=== PATIENT | female | born 1950 | race Caucasian/White ===

== ENCOUNTER 2022-05-15 10:52 | Outpatient (CLI) | payer MEDICARE | END 2022-05-15 10:53 | disposition home or self-care (01) | LOC: BICRAD 10:52 | PROVIDERS: ATTEND Podiatrist | DX: R60.0 Localized edema (principal); M79.672 Pain in left foot; E11.9 Type 2 diabetes mellitus without complications ==

== ENCOUNTER 2022-11-27 14:07 | Outpatient (CLI) | payer MEDICARE | END 2022-11-27 14:08 | disposition home or self-care (01) | LOC: RAD 14:07 | PROVIDERS: ATTEND Internal Medicine Critical Care Medicine | DX: R06.00 Dyspnea, unspecified (principal); J98.4 Other disorders of lung | CPT/HCPCS: 71046 ==

== ENCOUNTER 2023-09-18 13:23 | Outpatient (CLI) | payer MEDICARE | END 2023-09-18 13:24 | disposition home or self-care (01) | LOC: BICMAMMO 13:23 | PROVIDERS: ATTEND Internal Medicine | DX: M85.851 Other specified disorders of bone density and structure, right thigh (principal); M85.852 Other specified disorders of bone density and structure, left thigh | CPT/HCPCS: 77080 ==

== ENCOUNTER 2024-05-08 14:31 | Outpatient (CLI) | payer MEDICARE | END 2024-05-08 14:32 | disposition home or self-care (01) | LOC: BICCT 14:31 → EDSTATUS 15:00 | PROVIDERS: ATTEND Physical Medicine & Rehabilitation | DX: R29.898 Other symptoms and signs involving the musculoskeletal system (principal) | CPT/HCPCS: 70450 ==